=== PATIENT | male | born 1960 | race Two or more races ===

== ENCOUNTER 2024-08-05 10:54 | Emergency (ER) | payer MEDICAID, SELFPAY ==
--- NOTE | ~2024-08-05 | XR_ITS ---
EXAMINATION: XR CHEST CLINICAL INFORMATION: Hypoxia COMPARISON: None available. TECHNIQUE: AP semiupright (2 images) view of the chest was obtained. Best possible images FINDINGS: There are patchy airspace opacities towards the left base. These could represent aspiration or pneumonia. There are bilateral peripheral and subpleural predominant reticular markings. No pleural effusions. Relatively low lung volumes. Difficult to differentiate acute disease such as edema from chronic disease such as fibrosis or airways changes. Recommend short interval follow-up. Prominence of the heart and mediastinum exacerbated by low lung lines and nonstandard positioning. Moderate gaseous distention of the stomach. XR/XR chest 1V IMPRESSION: 1. Patchy airspace opacities towards the left base suspicious for pneumonia. 2. Nonspecific increase in reticular markings. Recommend short-term follow-up. 3. Gaseous distention of the stomach. Electronically signed by: Kenny Cerrato MD 08/05/2024 01:37 PM EDT
--- NOTE | 2024-08-05 11:07 | ED.SOB ---
HPI - SOB/Dyspnea General Chief Complaint: Altered Mental Status Stated Complaint: diff breathing Time Seen by Provider: 08/05/24 11:07 Source: patient and EMS Mode of arrival: EMS Limitations: no limitations History of Present Illness ED Provider: Teddy Harris PA-C HPI Narrative: 64-year-old male with history of opiate use disorder on methadone ongoing IVDA, who presents to the ER for evaluation of altered mental status and hypoxia. Patient was reportedly found sitting on sidewalk lethargic and 911 was called. EMS found the patient is satting 64% on room air. His respiratory rate was 10. He was placed on 100% non-rebreather with increase in oxygen saturations to 100%. He was maintaining his airway and did not require Narcan. Patient is lethargic on arrival, poor historian, wanting to leave. He took off of his oxygen, refused all lab work and intervention. He denies any intentional overdose. Associated symptoms: denies other symptoms Treatment prior to arrival: oxygen Related Data Home oxygen amount: none Allergies Allergy/AdvReac Type Severity Reaction Status Date / Time No Known Allergies Allergy Unverified 08/05/24 11:35 Review of Systems Review of Systems: Yes all other systems are reviewed and are negative PMFSH Social History Social History Advance Directives: No Advance Directives Information Provided: No Physical Exam Vital Signs: Vital Signs: Last Vital Signs Temp 98 F 08/05/24 13:26 Pulse 108 H 08/05/24 13:26 Resp 16 08/05/24 13:26 BP 102/72 08/05/24 13:26 Pulse Ox 96 08/05/24 13:26 O2 Del Method Room Air 08/05/24 13:26 Oxygen Flow Rate 4 08/05/24 11:32 BMI result Body Mass Index 25.2 Appearance: Lethargic, appears older than stated age, Oriented X3. Chronically ill-appearing, poorly kempt Head: normocephalic, atraumatic. Eyes: Pupils pinpoint equal, round. ENT: Pharynx without dentition No tonsillar swelling or exudate. Neck: Normal inspection. Neck supple. CVS: Normal heart rate and rhythm. Pulses normal. Respiratory: No respiratory distress. Breath sounds diminished at the bilateral bases Abdomen: Soft and nontender. +BS x4 Skin: Skin warm and dry. Patient has several ulcerating, large open wounds on all 4 extremities consistent with drug use, no surrounding erythema or induration, no drainage, Extremities: No lower extremity edema. No joint swelling. Neuro/psych: Oriented X 3. No motor deficit. No sensory deficit. Steady gait. CN II-XII intact. Normal speech and cognition. Medical Decision Making Medical Decision Making MDM Narrative: 64-year-old male with history of drug use on methadone and actively still using presents to the ER for evaluation of altered mental status and hypoxia. Significantly hypoxic in the field, sat 64%. Improved to 100% with non-rebreather. On arrival patient is lethargic but able to be transitioned to nasal cannula with maintenance of saturations 98% on 2 L. He took the oxygen off and refused to wear it again. He was oriented x3, stating we are evaluating his rights. He denied any need for intervention. He denied any chest pain or shortness of breath. He states he follows up with his doctor regularly and does not need any help from us today. Chest x-ray was performed, he denied all blood work and did not allow any further workup. He was monitored off oxygen and maintained normal O2 saturations. He was up ambulating to the bathroom and wanted to leave. He refused all treatment, need for detox or any assistance. He states he will follow-up with his doctor. He will take the bus. Differential Diagnosis Differential Diagnoses: The differential diagnosis associated with the presentation includes Unintentional/accidental opiate overdose, polysubstance use, as I lysine wounds, aspiration pneumonia, aspiration pneumonitis Admission/Observation Consideration of admission/observation: Escalation of care including admission/observation considered Independent Interpretation I performed an independent interpretation of an: Plain X-Ray Interpretation: Poorly position, suboptimal views. Independent Historian Clinical information obtained from an independent historian. History obtained from or confirmed by: EMS Prescription Management I considered prescription management with: Antibiotic and Other (Narcan) Chronic Conditions Patient?s care impacted by: Other (Opiate use disorder) Social Determinants Patient?s care significantly limited by Social Determinants of Health including: Problems related to primary support group and Other Social Determinant of Health Critical Care Time Critical Care Time Critical Care Time: No Discharge Plan Discharge Clinical Impression: Accidental drug overdose Patient Disposition: Home, Self-Care Instructions: Adult Overdose (ED) Additional Instructions: DO NOT DO DRUGS, THEY CAN KILL YOU Follow-up with your doctor and get started back on methadone. If you develop new or worsening symptoms call 911 or come back to the ER for further evaluation. Interventions: ED Discharge Assessment Last Done: 08/05/24 13:26 Discharge Date/Time: 08/05/24 13:31 Print Language: Peruvian
[2024-08-05 11:18] VITALS: BP 150/84; PULSE 115; O2SAT 64
--- NOTE | 2024-08-05 11:31 | PC.NURSE ---
multiple attempts at IV access from different RNs, unsuccessful, patient agitated with staff, refusing care at this time
[2024-08-05 11:32] VITALS: BP 134/81; PULSE 100; RESP 10; O2SAT 96; BMI 25.2
--- NOTE | 2024-08-05 11:34 | MHC.EDTECH ---
Patient refuse ekg ,RN aware
--- NOTE | 2024-08-05 11:55 | PC.NURSE ---
late charting due to patient care, patient from roadside found by PD to be apneic, PD called EMS to assess, jorge was found to have O2 saturation of 70% on room air, was placed on NRB by EMS with good effect in the field, no narcan administered in field, patient denies drug use today, patient responding to verbal stimuli, and answering questions appropriately, resistant to care upon arrival, patient noted to have multiple large wounds to all extremities, known IVDA. patient placed on 4L nasal cannula and maintaining saturations of 96-98%, occsionally drops to 89% while asleep but goes back up to normal when aroused by verbal stimuli. patient educated multiple times on importance of blood work and tests, still resisting care at this time states you cant touch me, youre going against my rights if you do anything to me . provider made aware of patient resisting care, agreeable to be placed on monitor at this time, HR WNL
--- NOTE | 2024-08-05 12:43 | PC.NURSE ---
patient refusing to leave oxygen probe on finger, remains on cardiac moitor
--- NOTE | 2024-08-05 13:09 | PC.NURSE ---
frannie still requesting to leave, has been maintaining O2 saturation on room air, still refusing treatment, ambulatory to bathroom with edt. provider made aware, patient states he will take the bus home
[2024-08-05 13:10] VITALS: BP 102/72; PULSE 108; RESP 16; TEMP 36.6; O2SAT 96
--- NOTE | 2024-08-05 13:15 | PC.NURSE ---
patient ambulatory with steady gait to bathroom
[2024-08-05 13:26] VITALS: BP 102/72; PULSE 108; RESP 16; TEMP 36.6; O2SAT 96
== END 2024-08-05 13:31 | disposition home or self-care (01) ==
PROVIDERS: Emergency Provider Emergency Medicine
DX: R41.82 Altered mental status, unspecified (principal); T40.3X1A Poisoning by methadone, accidental (unintentional), initial encounter; Y92.89 Other specified places as the place of occurrence of the external cause; R06.02 Shortness of breath; R09.02 Hypoxemia
CPT/HCPCS: 71045; 99282; 99283

== ENCOUNTER 2024-09-04 16:57 | Emergency (ER) | payer MEDICAID, SELFPAY ==
--- NOTE | ~2024-09-04 | XR_ITS ---
EXAMINATION: XR CHEST CLINICAL INFORMATION: Shortness of breath. COMPARISON: Chest radiograph 08/05/2024. TECHNIQUE: 2 views of the chest were obtained. FINDINGS: Redemonstration of at least moderate peribronchial thickening with a more focal airspace density towards the right lung base. Subtle peripheral left-sided Geovanna B-lines. No pleural effusion. No pneumothorax. Stable appearance of the cardiomediastinal silhouette. No acute osseous findings. XR/XR chest 2V IMPRESSION: Findings are suspicious for atypical infectious/inflammatory process with early infiltrates in the right lower lobe. A degree of pulmonary edema is also suspected. Recommend clinical correlation and short-term follow-up. Electronically signed by: Zahida Garg MD 09/04/2024 08:26 PM EDT
--- NOTE | 2024-09-04 17:53 | ED_ITS ---
HPI - General Adult General Chief complaint: Skin/Abscess/Foreign Body Stated complaint: SOB/Abscess Time Seen by Provider: 09/04/24 21:10 Source: patient Mode of arrival: ambulatory Limitations: no limitations History of Present Illness ED Provider: Dr. Maravilla HPI narrative: Patient presents for being homeless and actively using drugs. He states that he intermittently has some shortness of breath Related Data Allergies Allergy/AdvReac Type Severity Reaction Status Date / Time No Known Allergies Allergy Verified 09/04/24 17:59 Review of Systems Review of Systems: Yes all other systems are reviewed and are negative Neurologic: Denies Sensory deficit (Neuro) [facility] Social History Social History Advance Directives: No Advance Directives Information Provided: No Physical Exam ED Vital Signs: Vital Signs - 24 hr 09/04/24 17:56 09/04/24 21:56 09/04/24 22:41 Temperature 98.5 F 98.5 F 0 F L Pulse Rate 86 114 H 0 L Respiratory Rate 18 20 0 L Blood Pressure 143/78 H 000/00 L Pulse Oximetry 100 100 0 L Oxygen Delivery Method Room Air Room Air BMI result Body Mass Index 23.5 Const Other: cachectic male unkept, looking much older than stated age Orientation/consciousness: oriented to person and patient oriented x3 Limitations: no limitations HENMT Head: Yes normal to inspection Ears: external ears normal General nose exam: Normal external nose present Mouth: Normal oral and palatal mucosa present and oropharynx normal Throat: Yes posterior oropharynx normal Eyes General: appearance normal, both eyes and all related structures Neck Neck: Yes normal visual inspection Chest Chest palpation & inspection: normal inspection of the chest Resp Auscultation: clear to auscultation bilaterally Cardio Jugular venous distension: no JVD Rate: regular rate Rhythm: regular rhythm Heart sounds: S1 normal heart sound present and S2 normal heart sound present GI Inspection: Yes normal to inspection Palpation (GI): Soft to palpation, nontender and No hepatosplenomegaly present Auscultation: normal bowel sounds General: Yes no CVA tenderness Back/Spine/Pelvis Back: no CVA tenderness Skin Other: Well circumscribed lesions to his arms and legs into the fascia, old no evidence of cellulitis. Neuro General: oriented to person and patient oriented x3 Cranial nerves: Yes CN's II-XII intact bilaterally Motor exam (neuro): 5/5 motor strength present throughout Sensory Exam: No Sensory deficit (Neuro) Extrem General: Yes normal to inspection Psych Appearance: grossly normal Course Course Course Narrative: This is an RME: Additional HPI, ROS, PE not included below will be deferred to primary provider. RME assessment and note performed by: Roxie Motley PA-C This is a 32-feel-bij-male, with a history of opiate use disorder with ongoing IVDA not on methadone, HIV who presents to the ER with complaints of shortness of breath. Pt is homeless. Pt with extensive large open wounds in BL arms, unable to visualize legs in triage. Uses a couple bundles of speedball . Last used couple hours ago. Plan: Labs, XR, further ER needed. Reevaluation(s) Reevaluation #1: patient offered the CARE team and case management, however he does not want to stay in for the evaluations Time: 22:05 Reevaluation #2: 09/05/2024 1115: Called by the lab and informed the patient's blood culture great gram positive cocci in chains. Patient only had 1 blood culture drawn. Patient's cell phone number listed is not an actual telephone number. Considered sending a letter but patient does not have an address listed. Medical Decision Making Differential Diagnosis Differential Diagnoses: The differential diagnosis associated with the presentation includes (Active drug use, undomiciled, cellulitis, psychiatric illness) Admission/Observation Consideration of admission/observation: Escalation of care including admission/observation considered (upon arrival admission was considered) Lab Data Labs: Lab Results 09/04/24 Range/Units 19:02 Influenza Type A (PCR) NEGATIVE (Negative) Influenza Type B (PCR) NEGATIVE (Negative) RSV RNA Qual (PCR) NEGATIVE (Negative) SARS-CoV-2 RNA (RT-PCR) NEGATIVE (Negative) Independent Interpretation I performed an independent interpretation of an: Plain X-Ray (left sided stranding) Prescription Management I considered prescription management with: Antibiotic (there is some stranding on the xray but no evidence of fever or cough) Social Determinants Patient?s care significantly limited by Social Determinants of Health including: Inadequate housing, Low income and Alcoholism and drug addiction in family Discharge Plan Discharge Clinical Impression: Abscess of skin or subcutaneous tissue, Homeless, Polysubstance abuse Patient Disposition: Home, Self-Care Instructions: Polysubstance Abuse (ED) Referrals: Physician,Unknown J [Primary Care Provider] - 5 days Interventions: ED Discharge Assessment Last Done: 09/04/24 22:41 Discharge Date/Time: 09/04/24 22:58 Print Language: South African
[2024-09-04 17:56] VITALS: BP 143/78; PULSE 86; RESP 18; TEMP 36.9; O2SAT 100; BMI 23.5
--- NOTE | 2024-09-04 17:56 | ECG_ITS ---
Test Reason : DYSPNEA Blood Pressure : / mmHG Vent. Rate : 089 BPM Atrial Rate : 089 BPM P-R Int : 140 ms QRS Dur : 102 ms QT Int : 392 ms P-R-T Axes : 052 -36 049 degrees QTc Int : 476 ms Artifact in tracing Normal sinus rhythm Left axis deviation Minimal voltage criteria for LVH, may be normal variant ( Sokolow-Jansen ) Nonspecific T wave abnormality Abnormal ECG No previous ECGs available Referred By: Roxie Motley Electronically Signed By:GUILLERMO NESBITT
[2024-09-04 19:43] LABS: Influenza A PCR NEGATIVE (Negative); Influenza B PCR NEGATIVE (Negative); Resp Syncy Virus RNA Qual PCR NEGATIVE (Negative); SARS COV2 PCR INHOUSE NEGATIVE (Negative)
[2024-09-04 21:56] VITALS: PULSE 114; RESP 20; TEMP 36.9; O2SAT 100
--- NOTE | 2024-09-04 22:21 | PC.NURSE ---
pt left AMA - pt very upset that he has been given very individualized attention. states You and the doctor should be paying attention to me and to me only. pt is yelling this at RN while she is at the nurses station on the phone with his sister. sister states that he is agitated and anxious and this is normal for him. this RN along with others attempted to discuss with patient that there are other patients in the ER that are also requiring care. pt states you guys should only be providing care for me only! pt then asked infrastructure security architect walking by to help escort him out of the ER. pt was provided with his AMA paperwork.
[2024-09-04 22:41] VITALS: BP 000/00; PULSE 0; RESP 0; TEMP -17.7; TEMP 0; O2SAT 0
--- NOTE | 2024-09-05 08:27 | MHC.CM.ED ---
Received consult for assessment of d/c needs: pt left AMA prior to CM arrival
== END 2024-09-04 22:58 | disposition home or self-care (01) ==
PROVIDERS: Physician Assistant Medical; Emergency Provider Emergency Medicine
DX: R06.02 Shortness of breath (principal); L02.414 Cutaneous abscess of left upper limb; L02.413 Cutaneous abscess of right upper limb; L02.416 Cutaneous abscess of left lower limb; L02.415 Cutaneous abscess of right lower limb; R94.31 Abnormal electrocardiogram [ECG] [EKG]; F11.10 Opioid abuse, uncomplicated; Z59.00 Homelessness unspecified; Z03.818 Encounter for observation for suspected exposure to other biological agents ruled out; Z79.899 Other long term (current) drug therapy
CPT/HCPCS: 0241U; 71046; 87040; 87077; 87186; 87205; 93005; 99283; 99284

== ENCOUNTER → 2024-09-04 17:56 | Outpatient (BNV) | payer MEDICAID, SELFPAY | PROVIDERS: Emergency Provider Emergency Medicine; Visit Provider Internal Medicine | DX: R94.31 Abnormal electrocardiogram [ECG] [EKG] (principal) | CPT/HCPCS: 93010 ==

== ENCOUNTER 2024-09-25 14:16 | Emergency (ER) | payer MEDICAID, SELFPAY ==
[2024-09-25 14:23] VITALS: BP 130/70; PULSE 110; O2SAT 98; BMI 27.4
== END 2024-09-25 16:21 | disposition left against medical advice (07) ==
PROVIDERS: Emergency Provider Emergency Medicine Emergency Medical Services
DX: T50.991A Poisoning by other drugs, medicaments and biological substances, accidental (unintentional), initial encounter (principal); T50.901A Poisoning by unspecified drugs, medicaments and biological substances, accidental (unintentional), initial encounter; Y92.488 Other paved roadways as the place of occurrence of the external cause
CPT/HCPCS: 99281

== ENCOUNTER 2024-10-06 11:27 | Emergency (ER) | payer MEDICAID, SELFPAY ==
--- NOTE | ~2024-10-06 | XR_ITS ---
EXAMINATION: XR CHEST CLINICAL INFORMATION: Shortness of breath. COMPARISON: Most recent chest radiograph dated 09/04/2024. TECHNIQUE: Frontal view of the chest was obtained. FINDINGS: Interstitial and pulmonary vascular prominence, increased when compared to the prior examination. Patchy right lower lobe airspace opacities have also increased. No pleural effusion. No pneumothorax. Stable cardiomediastinal silhouette. XR/XR chest 1V IMPRESSION: Interstitial and pulmonary vascular prominence with patchy right lower lobe airspace opacities, increased when compared to the prior examination. Findings can be seen in the setting of pulmonary edema. Electronically signed by: Danilo Lopez MD 10/06/2024 01:50 PM [facility]
--- NOTE | 2024-10-06 11:31 | ED.GENADULT ---
HPI - General Adult General Chief complaint: Overdose Stated complaint: FOUND UNRESP,4MG NARCAN BY BYSTANDERS W/GOOD EFFEC Time Seen by Provider: 10/06/24 11:31 Source: patient and EMS Mode of arrival: EMS Limitations: other (poor historian, uncooperative ) History of Present Illness ED Provider: MERE Francis HPI narrative: 64-year-old male presents uncooperative with EMS he was found unresponsive on the side of the road, given 4 mg of intranasal Narcan with good effect. He comes in screaming stating he does not need to be here and he would like to leave. He is refusing all care. He is demanding water. He states he left [facility] where he was told he needed a blood transfusion he does not want 1. He reports he does not want care. He knows he can if certain conditions go undiagnosed/undetected. Patient very difficult to obtain history from and review of systems. Related Data Previous Rx's ?Medication ?Instructions ?Recorded cephalexin 500 mg tablet 500 mg PO Q6H 10 days #40 tabs 10/06/24 doxycycline hyclate 100 mg capsule 100 mg PO BID 10 days #20 caps 10/06/24 Allergies Allergy/AdvReac Type Severity Reaction Status Date / Time No Known Allergies Allergy Verified 10/06/24 11:59 Review of Systems Review of Systems: Yes all other systems are reviewed and are negative PMFSH Past Medical History Attestation statement: The following information was validated with the patient. Source: old records reviewed and nursing notes reviewed Social History Social History Advance Directives: No Advance Directives Information Provided: Yes Do you have a plan to hurt others: No Plan Physical Exam ED Vital Signs: Vital Signs - 24 hr 10/06/24 11:55 10/06/24 12:06 Temperature 100.2 F 100.2 F Pulse Rate 125 H 122 H Respiratory Rate 24 H 30 H Blood Pressure 000/00 L 191/116 H Pulse Oximetry 100 100 Oxygen Delivery Method Room Air Nasal Cannula Oxygen Flow Rate 2 BMI result Body Mass Index 24.3 Appearance: Alert.? Oriented X3.? No acute distress.? Head: Normocephalic, atraumatic, no step-offs or deformities Eyes: Pupils equal, round and reactive to light.? Neck: Normal inspection.? Neck supple.? CVS: Normal heart rate and rhythm.? Pulses normal.? Respiratory: No respiratory distress.? Breath sounds normal.? Abdomen: Soft and nontender.? Skin: Skin warm and dry.? Pale skin color.? Normal skin turgor.?+ old appearing wounds to b/l lower extremitites, right upper extremity they appear like xylazine wounds. Extremities: No lower extremity edema.? No calf ttp. Global weakness. Neuro: Oriented X 3.? No motor deficit.? No sensory deficit. CN 2-12 intact Course Reevaluation(s) Reevaluation #1: Patient alert and oriented x4, he reports he does not want to be here he is refusing an IV he is refusing lab work. He does not want treatment. I did send him home with Narcan as well as p.o. antibiotics for his wounds with a number to the wound clinic. Risks of leaving against medical advice were shared with the patient including , worsening condition, disability, stroke, infection and sepsis he verbalizes understanding and wants to leave. His point of care was 164. Chest x-ray was done and pending. Time: 13:34 Reevaluation #2: Patient decided to leave against medical advice. I took the time to go over risks of leaving against medical advice including . Patient verbalizes understanding of this. Advised them to come back if they change their mind. Time: 13:35 Medications Administered Discontinued Medications Generic Name Dose Route Start Last Admin Trade Name Reaganq PRN Reason Stop Dose Admin Acetaminophen 650 mg 10/06/24 12:06 10/06/24 12:30 Acetaminophen 325 Mg Tablet PO 10/06/24 12:07 650 mg ONCE ONE Administration Medical Decision Making Medical Decision Making [facility] Narrative: 1140 64-year-old male presents with a suspected opiate overdose given Narcan with good improvement of symptoms. Comes in agitated, he would like to leave states he does not need to be here. He has chronic wounds noted to the right lower extremity, right upper extremity. They look like xylazine wounds History and physical exam concerning for opiate overdose possible hypoglycemia. Will rule out metabolic derangements and anemia. Will also rule out polysubstance abuse, alcohol intoxication. Plan labs, imaging, urine, chest x-ray. Differential Diagnosis Differential Diagnoses: The differential diagnosis associated with the presentation includes ( History and physical exam concerning for opiate overdose possible hypoglycemia. Will rule out metabolic derangements and anemia. Will also rule out polysubstance abuse, alcohol intoxication.) Admission/Observation Consideration of admission/observation: Escalation of care including admission/observation considered Lab Data Labs: Lab Results 10/06/24 Range/Units 11:49 POC Glucose 164 H (60-115) mg/dL Critical Care Time Critical Care Time Critical Care Time: No Discharge Plan Discharge Clinical Impression: Overdose, Chronic wound Patient Disposition: Left Against Medical Advice Instructions: Against Medical Advice (ED), Adult Overdose (ED) Additional Instructions: Take your medications as prescribed. If you were prescribed antibiotics today, it is important that you take your medication to their entirety, do not skip any doses, do not finish them early. Follow-up with your primary care provider this week. Return to the emergency department with new or worsening symptoms. Such as fevers, chills, chest pain, shortness of breath, nausea, vomiting, dizziness, headache, vision changes, lethargy In case of emergency call 911 Patient decided to leave against medical advice. I took the time to go over risks of leaving against medical advice including . Patient verbalizes understanding of this. Advised them to come back if they change their mind. Prescriptions: New doxycycline hyclate 100 mg capsule 100 mg PO BID 10 Days Qty: 20 0RF cephalexin 500 mg tablet 500 mg PO Q6H 10 Days Qty: 40 0RF Referrals: [facility] [place] Group] - 1 day Stand Alone Forms: Against Medical Advice Print Language: Portuguese
[2024-10-06 11:52] LABS: Glucose, Whole Blood 164 mg/dL (60-115)
[2024-10-06 11:55] VITALS: BP 000/00; BP 185/90; PULSE 125; RESP 24; TEMP 37.9; O2SAT 100; BMI 24.3
[2024-10-06 12:06] VITALS: BP 191/116; PULSE 122; RESP 30; TEMP 37.9; O2SAT 100
[2024-10-06] MEDS: Acetaminophen 325 MG TABLET 650 MG PO (12:30)
--- NOTE | 2024-10-06 12:37 | PC.NURSE ---
Pt difficult stick, multiple oozing open wounds everywhere, provider Aimee aware, needs US line, no staff available to insert at this time.
--- NOTE | 2024-10-06 12:44 | MHC.EDTECH ---
Patient refused to have labs drawn.
--- NOTE | 2024-10-06 13:09 | PC.NURSE ---
Pt refusing to let EDTs attempt lab work, intermittently yelling out, picking scabs and throwing scab pieces across the room. vamp wetter Becky and provider made aware.
--- NOTE | 2024-10-06 13:42 | PC.NURSE ---
Pt. refusing all care at this point, given the option to stay and receive treatment in the department or go, patient chose to leave AMA. Aimee way aware, AMA form signed w/ 2 RNs, Delaney and this RN. Security called to escort patient out of the department. Patient upset, yelling that no one will clean my legs . Patient able to walk and clean wounds on his own, given supplies. Patient threw supplies across room. Patient ultimately escorted to [facility] by security.
[2024-10-06 13:45] VITALS: BP 191/116; PULSE 122; RESP 30; TEMP 37.9; O2SAT 100
== END 2024-10-06 13:46 | disposition left against medical advice (07) ==
PROVIDERS: Emergency Provider Emergency Medicine
DX: T50.901A Poisoning by unspecified drugs, medicaments and biological substances, accidental (unintentional), initial encounter (principal); R40.4 Transient alteration of awareness; Y92.480 Sidewalk as the place of occurrence of the external cause; R45.1 Restlessness and agitation; L97.819 Non-pressure chronic ulcer of other part of right lower leg with unspecified severity; Z53.29 Procedure and treatment not carried out because of patient's decision for other reasons; R06.02 Shortness of breath
CPT/HCPCS: 71045; 82947; 99283